=== PATIENT | female | born 2000 | race Caucasian/White ===

== ENCOUNTER 2024-01-15 19:30 | Emergency (ER) | payer BC ==
[~2024-01-15] VITALS: Ht 162.6 cm; Wt 65.8 kg
[2024-01-15 22:03] VITALS: BP 125/75; O2SAT 97
== END 2024-01-15 22:03 | disposition home or self-care (01) ==
LOC: ER 19:30
DX: H92.01 Otalgia, right ear (principal); H71.91 Unspecified cholesteatoma, right ear; E11.9 Type 2 diabetes mellitus without complications
CPT/HCPCS: A4606; A4663